=== PATIENT | female | born 1965 | race Caucasian/White ===

== ENCOUNTER 2017-12-07 08:57 | Day surgery (SDC) | payer OTHER ==
[2017-12-07 09:34] VITALS: TEMP 98.4; BMI 43.4
[2017-12-07] MEDS ORDERED: PROPOFOL 20 ML ONE ×3 (09:40)
--- NOTE | 2017-12-07 09:47 | PROC ---
Endoscopy Procedure Endoscopy procedure completed. Please see scanned procedure report.
[2017-12-07 11:25] VITALS: BP 142/86; PULSE 60
--- NOTE | 2017-12-08 17:44 | PATH ---
Surgical Pathology Report Patient Name: JEANCARLOS CLIFFORD [facility] Rec. #: [id number] /Age/Gender: 1965 (Age: 52) / F Account: [id number] Location: [facility]-ENDOSCOPY Taken: 12/07/2017 Received: 12/07/2017 Reported: 12/08/2017 Physicians: Trino Melendez M.D. Specimen(s) Received A: BX 2ND PORTION DUODENUM B: BX ANTRUM AND BODY C: BX GE JUNCTION D: POLYP SIGMOID IN PREVIOUS POLYP SITE E: POLYP SIGMOID Clinical History GERD, history of colon polyp Postoperative diagnosis: Gastric ulcer, gastritis, esophagitis, colon diverticuli, sigmoid polyps Final Diagnosis A. SECOND PORTION DUODENUM, BIOPSY: DUODENAL MUCOSA WITH MILD CHRONIC DUODENITIS. B. ANTRUM AND BODY, BIOPSY: GASTRIC MUCOSA WITH MILD CHRONIC GASTRITIS. IMMUNOSTAIN IS NEGATIVE FOR H. PYLORI ORGANISMS. C. GE JUNCTION, BIOPSY: ESOPHAGEAL(SQUAMOUS) MUCOSA SHOWING CHANGES CONSISTENT WITH REFLUX ESOPHAGITIS. D. SIGMOID POLYP IN PREVIOUS POLYP SITE, POLYPECTOMY: HYPERPLASTIC POLYP. E. SIGMOID POLYPS, POLYPECTOMY: ONE FRAGMENT OF TUBULAR ADENOMA. SEPARATE FRAGMENTS OF HYPERPLASTIC POLYP. Electronically Signed Juice Hua M.D. Gross Description A. Received in formalin, labeled "biopsy second portion of duodenum" are 2 ventura, irregular portions of soft tissue measuring 0.2 and 0.3 cm. in greatest dimension. The specimens are submitted in toto in one cassette. B. Received in formalin, labeled "biopsy antrum and body" are 2 ventura, irregular portions of soft tissue measuring 0.3 and 0.9 cm. in greatest dimension. The specimens are submitted in toto in one cassette. C. Received in formalin, labeled "biopsy GE junction" are 3 ventura, irregular portions of soft tissue ranging from 0.1-0.3 cm. in greatest dimension. The specimens are submitted in toto in one cassette. D. Received in formalin, labeled "biopsy sigmoid polyp in previous polyp site" is a ventura, irregular portion of soft tissue measuring 0.4 cm. in greatest dimension. The specimen is submitted in toto in one cassette. E. Received in formalin, labeled "biopsy sigmoid polyps" are 3 ventura, irregular portions of soft tissue ranging from 0.1-0.5 cm. in greatest dimension. The specimens are submitted in toto in one cassette. 12/07/201712/07/2017
== END 2017-12-07 11:25 | disposition home or self-care (01) ==
LOC: JASU-ENDO 08:57
PROVIDERS: ATTEND Internal Medicine Gastroenterology
PROC: 0DB98ZX Excision of Duodenum, Via Natural or Artificial Opening Endoscopic, Diagnostic (ICD-10-PCS; 2017-12-07)
PROC: 0DB68ZX Excision of Stomach, Via Natural or Artificial Opening Endoscopic, Diagnostic (ICD-10-PCS; 2017-12-07)
PROC: 0DB48ZX Excision of Esophagogastric Junction, Via Natural or Artificial Opening Endoscopic, Diagnostic (ICD-10-PCS; 2017-12-07)
PROC: 0DBN8ZX Excision of Sigmoid Colon, Via Natural or Artificial Opening Endoscopic, Diagnostic (ICD-10-PCS; principal; 2017-12-07 10:00)
DX: Z12.11 Encounter for screening for malignant neoplasm of colon (principal); Z86.010 Personal history of colon polyps; D12.5 Benign neoplasm of sigmoid colon; K57.30 Diverticulosis of large intestine without perforation or abscess without bleeding; K25.9 Gastric ulcer, unspecified as acute or chronic, without hemorrhage or perforation; K44.9 Diaphragmatic hernia without obstruction or gangrene; K20.9 Esophagitis, unspecified
CPT/HCPCS: 84703